=== PATIENT | male | born 1940 | race Caucasian/White ===

== ENCOUNTER → 2017-02-09 | Outpatient (CLI) | payer MEDICARE, BC ==
[~2017-02-09] MED LIST: ALLOPURINOL300 MG PO; CATAPRES0.1 MG PO; CIPRO PO; CIPRO XR 500 M500 MG PO; COZAAR100 MG PO; DILTIAZEM 24HR240 M1 PO; DOCUSATE SODIU100 MG PO; PRAVASTATIN SOD40 MG PO; VOLTAREN75 MG PO
--- NOTE | ~2017-02-09 | US6 ---
[facility] A Service of [facility] & [facility] RADIOLOGY TEXT RESULTS PATIENT: SHANIKA ORTEGA LOCATION: [facility] : 38 UNIT #: [id number] AGE: [address]: Negro Pedraza MD SEX: M ORDER DR: [id number] [facility] [address] [place], [place] [address] [id number] O MR#: [id number] #: [id number] NAME: SHANIKA ORTEGA : 1940 SEX: M STUDY DATE/TIME: 02/09/2017 7:22 UNIT: [facility] ROOM: STUDY DESCRIPTION: US Abdominal Limited Attending Physician: Negro Pedraza M.D. Referring Physician: Negro Pedraza M.D. Ordering Physician: Negro Pedraza M.D. Primary Care Physician: Negro Pedraza M.D. MEDICAL IMAGING REPORT This report is preliminary unless electronic signature is present EXAM Right upper quadrant ultrasound 02/09/2017 HISTORY Abnormally elevated liver enzymes on 02/07/2017. FINDINGS The liver demonstrates an increase in echotexture with attenuation of the ultrasound beam characteristic of fatty infiltration. No cystic or solid mass lesions were seen in the liver. The intra and extrahepatic bile ducts are not dilated. The gallbladder is normal with no evidence of cholelithiasis, wall thickening or pericholecystic fluid. The common duct measures 3 mm. The pancreas and right kidney are normal. IMPRESSION Fatty infiltration of the liver. Otherwise negative right upper quadrant ultrasound. Dictated by... Ashkan Miranda M.D. THIS IS AN ELECTRONICALLY VERIFIED REPORT Ashkan Miranda M.D. at 02/10/2017 8:02 AM Mo TD: 02/09/2017 17:29 JOB #: [id number] MEDICAL IMAGING REPORT Page 1 of 1 COPY
== END | disposition home or self-care (01) ==
LOC: CGUS 07:01
DX: R74.8 Abnormal levels of other serum enzymes (principal); K76.0 Fatty (change of) liver, not elsewhere classified
CPT/HCPCS: 76705